=== PATIENT | male | born 1970 | race Native Hawaiian/Other Pacific Islander ===

== ENCOUNTER 2016-09-05 10:54 | Emergency (ER) | payer OTHER ==
[~2016-09-05] VITALS: Ht 177.8 cm; Wt 117.9 kg
[2016-09-05 13:22] LABS: PLATELET COUNT 224 K/uL (142-355)
[2016-09-05 13:34] LABS: POTASSIUM 4.3 mmol/L (3.6-5.2); SODIUM 129 mmol/L (136-145)
[2016-09-05 15:30] VITALS: BP 154/78; TEMP 98
== END 2016-09-05 15:30 | disposition home or self-care (01) ==
LOC: ED 10:54
DX: L03.116 Cellulitis of left lower limb (principal); E11.65 Type 2 diabetes mellitus with hyperglycemia
CPT/HCPCS: 36415; 80053; 83036; 84550; 85027; 96372; 99283; J1815; J1885

== ENCOUNTER 2016-09-06 20:03 | Observation (INO) | payer OTHER ==
[~2016-09-06] VITALS: Ht 177.8 cm; Wt 121.2 kg
[2016-09-06 20:35] VITALS: BP 132/97; TEMP 98.5
[2016-09-06 21:15] VITALS: TEMP 98.1
[2016-09-06 22:27] LABS: PLATELET COUNT 225 K/uL (142-355)
[2016-09-06 22:39] LABS: POTASSIUM 3.9 mmol/L (3.6-5.2); SODIUM 134 mmol/L (136-145)
[2016-09-06 23:53] VITALS: BP 144/91; TEMP 99; Ht 177.8 cm; Wt 121.2 kg
[2016-09-07] MEDS ORDERED: PRINIVIL10 MG PO (00:12)
[2016-09-07] MEDS ORDERED: METFORMIN ER1000 MG PO (00:12)
[2016-09-07] MEDS ORDERED: GLIP10TA55 PO (00:13)
[2016-09-07 05:30] VITALS: BP 123/66; TEMP 98.8
[2016-09-07 08:00] VITALS: BP 122/65; TEMP 98.8
[2016-09-07 11:47] LABS: PLATELET COUNT 206 K/uL (142-355)
[2016-09-07 12:00] VITALS: BP 128/72; TEMP 98.8
[2016-09-07 12:00] LABS: POTASSIUM 3.9 mmol/L (3.6-5.2); SODIUM 135 mmol/L (136-145)
[2016-09-07 16:00] VITALS: BP 145/90; TEMP 98.2
[2016-09-07 20:00] VITALS: BP 139/84; TEMP 98.2
[2016-09-08] VITALS: BP 126/71; TEMP 98
[2016-09-08 04:00] VITALS: BP 106/56; TEMP 97.9
[2016-09-08 05:31] LABS: PLATELET COUNT 213 K/uL (142-355)
[2016-09-08 05:53] LABS: POTASSIUM 3.7 mmol/L (3.6-5.2); SODIUM 131 mmol/L (136-145)
[2016-09-08 08:00] VITALS: BP 137/83; TEMP 98
[2016-09-08 12:00] VITALS: BP 150/88; TEMP 97.6
[2016-09-08 16:00] VITALS: BP 159/91; TEMP 98.3
[2016-09-08 20:00] VITALS: BP 136/77; TEMP 98
[2016-09-09] VITALS: BP 139/78; TEMP 98
[2016-09-09 04:00] VITALS: BP 94/47; TEMP 97.8
[2016-09-09 05:42] LABS: PLATELET COUNT 194 K/uL (142-355)
[2016-09-09 05:44] LABS: POTASSIUM 3.3 mmol/L (3.6-5.2); SODIUM 136 mmol/L (136-145)
[2016-09-09 08:02] VITALS: BP 126/71; TEMP 97.9
[2016-09-09 12:00] VITALS: BP 131/83; TEMP 98.1
== END 2016-09-09 13:30 | disposition home or self-care (01) ==
LOC: ED 20:03 → MED/SURG 22:20
PROVIDERS: Emergency Medicine; ADMIT Family Medicine
DX: L03.116 Cellulitis of left lower limb (principal); I10 Essential (primary) hypertension; E11.8 Type 2 diabetes mellitus with unspecified complications; E87.1 Hypo-osmolality and hyponatremia
CPT/HCPCS: 36415; 80053; 81000; 82948; 83036; 83735; 84550; 85027; 87040; 96361; 96365; 96366; 96367; 96372; 96374; 96375; 99220; 99284; G0378; J0712; J2175; J3475

== ENCOUNTER 2017-08-19 21:31 | Emergency (ER) | payer OTHER ==
[~2017-08-19] VITALS: Ht 177.8 cm; Wt 114.8 kg
[~2017-08-19 21:31] MED LIST: GLIP10TA55 PO; METFORMIN ER1000 MG PO; PRINIVIL10 MG PO
[2017-08-19 23:24] VITALS: BP 163/95; TEMP 98.4
== END 2017-08-19 23:25 | disposition home or self-care (01) ==
LOC: ED 21:31
DX: H66.91 Otitis media, unspecified, right ear (principal); J32.0 Chronic maxillary sinusitis
CPT/HCPCS: 96372; 99283; J0696

== ENCOUNTER 2020-11-01 14:27 | Emergency (ER) | payer OTHER ==
[~2020-11-01] VITALS: Ht 177.8 cm; Wt 117.0 kg
[2020-11-01 15:06] LABS: PLATELET COUNT 345 K/uL (142-355)
[2020-11-01 15:21] LABS: PARTIAL THROMBOPLASTIN TIME 21.2 SECONDS (24.5-33.6)
[2020-11-01 15:31] LABS: POTASSIUM 4.8 mmol/L (3.6-5.2)
[2020-11-01 19:10] VITALS: TEMP 98
[2020-11-01 19:29] VITALS: BP 115/63
== END 2020-11-01 19:41 | disposition short-term general hospital (02) ==
LOC: ED 14:27
PROVIDERS: Hospitalist
DX: S22.32XA Fracture of one rib, left side, initial encounter for closed fracture (principal); S06.0X9A Concussion with loss of consciousness of unspecified duration, initial encounter; S09.8XXA Other specified injuries of head, initial encounter; Z03.818 Encounter for observation for suspected exposure to other biological agents ruled out; V28.0XXA Motorcycle driver injured in noncollision transport accident in nontraffic accident, initial encounter; Y92.89 Other specified places as the place of occurrence of the external cause
CPT/HCPCS: 80053; 80320; 81000; 82948; 85027; 85610; 85730; 87635; 96360; 96361; 96365; 96375; 96376; 99285; J1815; J1885; J2405; J3370; Q9963; U0003